=== PATIENT | female | born 1985 | race Two or more races ===

== ENCOUNTER 2019-03-09 15:52 | Emergency (ER) | payer SELFPAY ==
[~2019-03-09] VITALS: Ht 172.7 cm; Wt 100.0 kg
[2019-03-09] MEDS ORDERED: LORazepam 1MG TABLET PO ONE (16:00)
[2019-03-09] MEDS ORDERED: LORazepam 1MG TABLET ONE (16:07)
--- NOTE | 2019-03-09 16:09 | NUR ---
RHEA. REPORT RECEIVED FROM EMS. PT HAS PANICK/ANXIETY ATACK. DENIES SI/HI. SINUS TACHY ON FRAME AND SCRAP CRUSHER RATE 120'S AT THIS TIME. PT'S AOX4. RESPS EVEN AND UNLABORED. ALL MONITORS IN PLACE. CALL LIGHT WITHIN REACH. EDMD AT BEDSIDE TO EVALUATE AT THIS TIME.
--- NOTE | 2019-03-09 16:10 | NUR ---
PT AWARES OF UA. URINE CUP AT BEDSIDE. PT STATES " I CAN'T PEE NOW."
--- NOTE | 2019-03-09 16:10 | NUR ---
PT MEDICATED PER EMAR. PT TOLERATED WELL.
[2019-03-09 16:14] LABS: BASOPHILS # (AUTO) 0.01 x10^3/uL (0-0.1); BASOPHILS % (AUTO) 0 % (0-1); EOSINOPHILS % (AUTO) 1 % (1-7); LYMPHOCYTES # (AUTO) 0.97 x10^3/uL (1-3.4); LYMPHOCYTES % (AUTO) 8 % (22-44); MD NO; MEAN CORPUSCULAR HGB CONC 32.8 g/dL (32.4-35.8); MEAN CORPUSCULAR VOLUME 94.5 fL (80-100); MEAN PLATELET VOLUME 8.3 fL (7.4-10.4); MONOCYTES # (AUTO) 0.36 x10^3/uL (0.2-0.8); MONOCYTES % (AUTO) 3 % (2-9); NEUTROPHILS # (AUTO) 10.78 x10^3/uL (1.8-6.8); NEUTROPHILS % (AUTO) 88 % (42-75); PLATELET COUNT 287 x10^3/uL (130-400); RED BLOOD COUNT 4.76 x10^6/uL (3.82-5.3); RED CELL DISTRIBUTION WIDTH 14.2 % (9.6-15.2)
[2019-03-09 16:24] LABS: ALANINE AMINOTRANSFERASE 21 U/L (12-78); ALBUMIN 4.1 g/dL (3.4-5.0); ANION GAP 11 mmol/L (5-15); CALCIUM 9.5 mg/dL (8.5-10.1); CHLORIDE 110 mmol/L (98-107); CREATININE 0.97 mg/dL (0.55-1.02)
[2019-03-09 16:29] LABS: ALKALINE PHOSPHATASE 56 U/L (45-117); BILIRUBIN,TOTAL 0.9 mg/dL (0.2-1.0); TOTAL PROTEIN 8.9 g/dL (6.4-8.2)
[2019-03-09 16:30] LABS: SALICYLATE LEVEL < 1.7 mg/dL (2.8-20.0)
--- NOTE | 2019-03-09 16:45 | NUR ---
RIGO/ADENIKE PROVIDED AT THIS TIME.
--- NOTE | 2019-03-09 16:53 | NUR ---
SW AT BEDSIDE AT THIS TIME.
--- NOTE | 2019-03-09 17:48 | NUR ---
[facility] AT BEDSIDE AT THIS TIME.
--- NOTE | 2019-03-09 18:49 | NUR ---
MEAL TRAY ORDERED AT THIS TIME.
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
--- NOTE | 2019-03-09 19:04 | NUR ---
REPORT GIVEN TO MEGHNA MAXWELL.
--- NOTE | 2019-03-09 19:09 | NUR ---
REPORT FROM ALISSA ANGELO, TO ASSUME CARE AT THIS TIME.
--- NOTE | 2019-03-09 19:29 | NUR ---
BREAK RN: PT PROVIDED SANDWICH, CHIPS AND A DRINK. DENIES FURTHER NEEDS AT THIS TIME.
--- NOTE | 2019-03-09 19:32 | NUR ---
ELENI COLLECTED AND SENT.
--- NOTE | 2019-03-09 19:32 | NUR ---
PT RESTING IN SECURED ROOM WATCHING TV. DINNER TRAY PROVIDED. PT THANKFUL. NO NEEDS EXPRESSED. SITTER AT DOORWAY FOR CONTINUOUS MONITORING.
--- NOTE | 2019-03-09 19:33 | NUR ---
TP RN:Consulted [facility] about pt potential admit. Awaiting return call.
--- NOTE | 2019-03-09 19:37 | NUR ---
TP RN:[facility] is not accepting pt due to lack of insurance.
[2019-03-09 20:01] LABS: MICROSCOPIC AUTO
[2019-03-09 20:04] LABS: CULTURE INDICATED? YES
[2019-03-09 20:11] LABS: AMPHETAMINE SCREEN, URINE Positive (Negative); BARBITURATE SCREEN, URINE Negative (Negative); BENZODIAZEPINE SCREEN, URINE Negative (Negative); CANNABINOID SCREEN, URINE Negative (Negative); COCAINE SCREEN, URINE Negative (Negative); METHADONE SCREEN, URINE Negative (Negative); OPIATE SCREEN, URINE Negative (Negative)
--- NOTE | 2019-03-09 20:20 | NUR ---
PT RESTING IN SECURED ROOM. NO NEEDS EXPRESSED CALL LIGHT WITHIN REACH. SITTER REMAINS AT DOORWAY.
--- NOTE | 2019-03-09 20:40 | NUR ---
TP RN: Pt information faxed to [facility] at this time. Pt is self pay.
--- NOTE | 2019-03-09 21:30 | NUR ---
REPORT RECEIVED FROM ALISSA DUNNE. PLAN OF CARE DISCUSSED. PATIETN SLEEPING, RESPIRATIONS EVEN AND UNLABORED. SITTER AT DOOR.
--- NOTE | 2019-03-09 23:51 | NUR ---
PATIENT SLEEPING, RESPIRATIONS EVEN AND UNLABORED. NAD, SITTER AT DOOR.
--- NOTE | 2019-03-10 00:38 | NUR ---
REPORT RECEIVED FROM ESTELLA Mack RN. PT RESTING ON BED WITH EYES CLOSED. ROOM SECURED, SITTER IN HALLWAY WITHIN LINE OF SIGHT.
--- NOTE | 2019-03-10 01:28 | NUR ---
PT RESTING ON BED WITH EYES CLOSED, RESPIRATIONS EVEN AND UNLABORED. ROOM SECURED, SITTER IN HALLWAY.
--- NOTE | 2019-03-10 03:20 | NUR ---
PT RESTING WITH EYES CLOSED. RESPIRATIONS EVEN AND UNLABORED, SITTER IN HALLWAY, ROOM SECURED.
--- NOTE | 2019-03-10 04:17 | NUR ---
PT PROVIDED JUICE, WATER, AND CRACKERS UPON REQUEST. DENIES FURTHER NEEDS AT THIS TIME. SITTER IN HALLWAY WITHIN LINE OF SIGHT, ROOM SECURED.
--- NOTE | 2019-03-10 05:04 | NUR ---
PT RESTING ON BED WITH EYES CLOSED, RESPIRATIONS REGULAR AND UNLABORED. SITTER IN HALLWAY WITHIN LINE OF SIGHT, ROOM SECURED.
--- NOTE | 2019-03-10 06:15 | NUR ---
PT PROVIDED JUICE AND WATER UPON REQUEST. PT DENIES SI/HI AT THIS TIME. PT REPORTS FEELING BETTER SINCE SHE KNOWS SHE IS IN "A SAFE PLACE". PT NEEDS MET AT THIS TIME, SITTER IN HALLWAY, ROOM SECURED.
--- NOTE | 2019-03-10 06:15 | NUR ---
CALLED FOR HOSPITAL BED AT THIS TIME.
--- NOTE | 2019-03-10 06:50 | NUR ---
SBAR REPORT FROM NISSA RN PATIENT MOVED TO HOSPITAL BED IN ROOM SECURED WITH PSYCHIATRIC PRECAUTIONS SITTER WITHIN DIRECT EYELINE
--- NOTE | 2019-03-10 07:08 | NUR ---
WITH ASSESSMENT PATIENT REPORTS SHE PRESENT TO ER SHE FEELS HOPELESS/UNSAFE REPORTS SHE FEELS LIKE HER ANXIETY Addendum: 03/10/19 at 0712 by MARCUSING ANXIETY... GET RAMPED UP TO CRITICAL LEVELS WITH CURRENT SOCIAL NETWORK. (LOTS OF METH ABUSE AT HOME CURRENTLY/DOES NOT HAVE ANY DISTRACTORS (
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
--- NOTE | 2019-03-10 11:33 | NUR ---
ambulatory service representative at bedside to re-eval legal 2000
--- NOTE | 2019-03-10 12:21 | NUR ---
Veena with psych at [facility] for evaluation.
[2019-03-10] MEDS ORDERED: HYDROXYZINE PAMOATE 50MG CAP PO PRN (13:30)
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
[2019-03-10] MEDS ORDERED: HYDR-826 PO (14:34)
[2019-03-10] MEDS ORDERED: LOSA25TA25 PO (14:34)
--- NOTE | 2019-03-10 15:05 | NUR ---
Patient's phone to ER Sow Farm Technician's desk to charge
--- NOTE | 2019-03-10 15:06 | NUR ---
Room remains secured with psychiatric precautions Sitter within line of sight Patient resting comfortably on hospital bed Denies complaints Dinner ordered
[2019-03-10] MEDS ORDERED: LORazepam 1MG TABLET ONE (18:23)
[2019-03-10] MEDS ORDERED: ACETAMINOPHEN 500 MG TABLET ONE (18:24)
--- NOTE | 2019-03-10 18:26 | NUR ---
medicated per emar for mild menendez/restlessness no complaints sitter within line of sight
[2019-03-10] MEDS ORDERED: ACETAMINOPHEN 325 MG TABLET PO ONE (18:30)
[2019-03-10] MEDS ORDERED: LORazepam 1MG TABLET PO ONE (18:30)
--- NOTE | 2019-03-10 18:58 | NUR ---
BEDSIDE SBAR REPORT TO JUAN MAXWELL
--- NOTE | 2019-03-10 19:04 | NUR ---
RECEIVED REPORT FROM ALISSA HOOKS TO ASSUMCE CARE OF PT. AT THIS TIME. POC DISCUSSED WITH PT. PT. EATING MEAL TRAY THAT WAS PROVIDED. PT. PLEASANT WITH STAFF. NO DISTRESS NOTED. DENIES NEEDS AT THIS TIME, ROOM SECURED. SITTER IN [place]ARI.
--- NOTE | 2019-03-10 19:38 | NUR ---
VS UPDATED. PT. ATE HALF OF MEAL TRAY PROVIDED. PT. DENIES NEEDS AT THIS TIME. NO DISTRESS NOTED. PT. RESTING ON HOSPITAL BED. ROOM REMAINS SECURED. SITTER IN [place]I.
--- NOTE | 2019-03-10 20:52 | NUR ---
PT. RESTING ON HOSPITAL BED WITH EYES CLOSED. NO DISTRESS NOTED. EVEN, NON-LABORED RESPIRATIONS VISIBLE. ALL SAFETY MEASURES MAINTAINED. SITTER IN VIEW. ROOM SECURED.
--- NOTE | 2019-03-10 22:20 | NUR ---
PT. CONTINUES TO REST ON HOSPITAL BED WITH EYES CLOSED. EVEN, NON-LABORED RESPIRATION VISIBLE. NO DISTRESS NOTED. SITTER REMAIN IN KOTHARI; ROOM REAMINS SECURED.
--- NOTE | 2019-03-10 23:24 | NUR ---
PT. CONTINUES RESTING ON HOSPITAL BED WITH EYES CLOSED, EVEN, NON-LABORED RESPIRATIONS VISIBLE. NO DISTRESS NOTED. ROOM REMAINS SECURED AND SITTER IN KOTHARI.
--- NOTE | 2019-03-11 00:40 | NUR ---
PT. CONTINUES RESTING ON HOSPITAL BED WITH EYES CLOSED. EVEN, NON-LABORED RESPIRATIONS NOTED.
--- NOTE | 2019-03-11 02:09 | NUR ---
NO CHANGE SINCE LAST NOTE.
--- NOTE | 2019-03-11 03:47 | NUR ---
PT. CONTINUES RESTING ON GURNEY WITH EVEN, NON-LABORED RESPIRATIONS. SITTER REMAINS IN KOTHARI. ROOM REAMINS SECURED.
--- NOTE | 2019-03-11 05:16 | NUR ---
PT. CONTINUES RESTING ON HOSPITAL BED WITH EYES CLOSED WITH NO DISTRESS. EVEN, NON-LABORED RESPIRATIONS VISIBLE. ROOM REMAINS SECURED. SITTER IN [place]ARI.
--- NOTE | 2019-03-11 06:58 | NUR ---
BS REPORT TO ALISSA GOMEZ.
--- NOTE | 2019-03-11 07:00 | NUR ---
ASSUMED CARE. EQUIPMENT AND SUPPLIED SECURED BEHIND PULL DOWN DOORS. SITTER IN DIRECT VIEW OF PT
--- NOTE | 2019-03-11 07:34 | NUR ---
Milton patel in ED - 03/11/19 at 0735 by CHLOE DIRECTOR OF TRAUMA CALLING WITH [employer] ABOUT CURRENT ORDERS/PLAN. CALL DIRECTED TO FILOMENA IRVIN.
--- NOTE | 2019-03-11 07:35 | NUR ---
PREVIOUS NOTE ENTERED ON WRONG PT.
--- NOTE | 2019-03-11 08:30 | NUR ---
DETAILED MESSAGE LEFT ON [employer]ICE MAIL FOR PSYCH CONSULT TEAM [phone] THAT PT HAS A 2:00 BUS PASS TO GO TO HER SISTER'S HOME A SAFE DISCHARGE AND THAT SHE ADDTIONALLY IS HOPING TO HAVE POLICE TAKE HER TO WHERE HER BELONGINGS ARE SO THAT SHE CAN SAFELY GET THEM BEFORE GOING TO BUS. REQUESTING SALES REPRESENTATIVE SUPERVISOR TO COME TO ER TO EVAL FOR RELEASE FROM HOLD YOHANNES BECAUSE OF TIME CONTSTRAINTS FOR DISCHARGE. ADDITIONALLY REFERED TO NOTE MADE YESTERDAY BY [facility] BASKET PERSON THAT ONCE SHE HAD A SAFE PLAN, SHE COULD BE RELEASED FROM HOLD
--- NOTE | 2019-03-11 09:00 | NUR ---
PROVIDED BREAKFAST TRAY
[2019-03-11 11:06] VITALS: BP 110/64
--- NOTE | 2019-03-11 11:38 | NUR ---
DR DELEON RELEASED PT FROM HOLD. [facility] DISPATCH CONTACTED. PT PROVIDED TAXI VOUCHER TO [place] WHICH IS NEARBY WHERE PT NEEDS TO OBTAIN HER BELONGINGS. PT PROVIDED [employer]'S DISPATCH NUMBER AND TO CALL WHEN SHE GETS TO THE PARKING LOT OF [employer] SO THAT SHE CAN BE ESCORTED BY [facility] INTO EX-BOYFRIEND'S TO GET BELONGINGS. PT THEN TO CALL TAXI TO GET TO BUS STOP IF [facility] CANNOT GIVE HER A RIDE TO BUS STOP. BUS TICKET IN PLACE PER SISTER TO GO TO SISTER'S HOUSE IN [place].
== END 2019-03-11 11:43 | disposition home or self-care (01) ==
LOC: ED 19:26
DX: F41.1 Generalized anxiety disorder (principal); F33.3 Major depressive disorder, recurrent, severe with psychotic symptoms; F15.250 Other stimulant dependence with stimulant-induced psychotic disorder with delusions; I10 Essential (primary) hypertension
CPT/HCPCS: 36415; 80053; 80307; 81001; 84443; 84703; 85025; 87086; 99284

== ENCOUNTER 2019-04-18 19:51 | Emergency (ER) | payer MEDICAID ==
[~2019-04-18] VITALS: Ht 172.7 cm; Wt 100.0 kg
[~2019-04-18 19:51] MED LIST: HYDR-826 PO; LOSA25TA25 PO
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
[2019-04-18] MEDS ORDERED: LORazepam 0.5MG TABLET PO ONE (20:30)
--- NOTE | 2019-04-18 20:37 | NUR ---
this rn called [facility] for report per edmd verbal order.
[2019-04-18] MEDS ORDERED: LORazepam 0.5MG TABLET ONE (20:43)
[2019-04-18 20:48] LABS: BASOPHILS # (AUTO) 0.03 x10^3/uL (0-0.1); BASOPHILS % (AUTO) 1 % (0-1); EOSINOPHILS # (AUTO) 0.06 x10^3/uL (0-0.4); EOSINOPHILS % (AUTO) 1 % (1-7); LYMPHOCYTES % (AUTO) 30 % (22-44); MD NO; MEAN CORPUSCULAR HEMOGLOBIN 30.9 pg (27.0-34.8); MEAN CORPUSCULAR VOLUME 93.6 fL (80-100); MEAN PLATELET VOLUME 8.3 fL (7.4-10.4); MONOCYTES # (AUTO) 0.41 x10^3/uL (0.2-0.8); MONOCYTES % (AUTO) 7 % (2-9); NEUTROPHILS # (AUTO) 3.62 x10^3/uL (1.8-6.8); NEUTROPHILS % (AUTO) 61 % (42-75); PLATELET COUNT 312 x10^3/uL (130-400); RED BLOOD COUNT 4.54 x10^6/uL (3.82-5.3); RED CELL DISTRIBUTION WIDTH 14.4 % (9.6-15.2)
[2019-04-18 21:01] LABS: ALBUMIN 3.8 g/dL (3.4-5.0); ANION GAP 7 mmol/L (5-15); CALCIUM 8.8 mg/dL (8.5-10.1); CHLORIDE 111 mmol/L (98-107); CREATININE 0.94 mg/dL (0.55-1.02)
[2019-04-18 21:05] VITALS: BP 156/106
--- NOTE | 2019-04-18 21:06 | NUR ---
PT MEDICATED PER EMAR. PT TOLERATED WELL.
--- NOTE | 2019-04-18 21:11 | NUR ---
ekg done at bedside by emt at this time.
--- NOTE | 2019-04-18 21:17 | NUR ---
pt amb to br and back to room with steady gait.
--- NOTE | 2019-04-18 21:18 | NUR ---
pt's bp 156/106 at this time. edmd notified and states" no meds needed at this time."
[2019-04-18] MEDS ORDERED: POTASSIUM CHLORIDE 20 MEQ TAB.ER.PRT PO ONE (21:30)
[2019-04-18] MEDS ORDERED: HYDROCHLOROTHIAZIDE 12.5 MG CAPSULE PO ONE (21:30)
[2019-04-18] MEDS ORDERED: LOSARTAN 50MG TABLET PO ONE (21:30)
--- NOTE | 2019-04-18 21:42 | NUR ---
juice/snacks provided at this time.
--- NOTE | 2019-04-18 22:07 | NUR ---
[facility] at bedside at this time.
--- NOTE | 2019-04-18 22:51 | NUR ---
Patient given discharge instructions and they have confirmed that they understand the instructions. Patient ambulatory with steady gait.
== END 2019-04-18 22:52 | disposition home or self-care (01) ==
LOC: ED 20:33
DX: F41.1 Generalized anxiety disorder (principal); I10 Essential (primary) hypertension; E87.6 Hypokalemia; F32.9 Major depressive disorder, single episode, unspecified; F17.200 Nicotine dependence, unspecified, uncomplicated; F15.10 Other stimulant abuse, uncomplicated
CPT/HCPCS: 36415; 80048; 82040; 85025; 93005; 99284